=== PATIENT | male | born 1960 ===

== ENCOUNTER 2021-06-14 18:17 | Emergency (ER) | payer MEDICAID ==
[~2021-06-14] VITALS: Ht 160 cm; Wt 59.0 kg
--- NOTE | 2021-06-14 18:34 | NUR ---
EKG COMPLETED IN TRIAGE
[2021-06-14 19:04] LABS: BASOPHILS % (AUTO) 1 % (0-1); EOSINOPHILS % (AUTO) 0 % (1-7); LYMPHOCYTES % (AUTO) 30 % (22-44); MEAN CORPUSCULAR HEMOGLOBIN 30.1 pg (27.5-34.5); MEAN CORPUSCULAR HGB CONC 34.2 g/dL (33.2-36.2); MEAN PLATELET VOLUME 8.4 fL (7.4-10.4); MONOCYTES % (AUTO) 9 % (2-9); NEUTROPHILS % (AUTO) 61 % (42-75); PLATELET COUNT 251 x10^3/uL (130-400); RED BLOOD COUNT 5.56 x10^6/uL (4.38-5.82)
[2021-06-14 19:14] LABS: ALANINE AMINOTRANSFERASE 21 U/L (12-78); ANION GAP 4 mmol/L (5-15); CALCIUM 8.3 mg/dL (8.5-10.1); CHLORIDE 103 mmol/L (98-107); CREATININE 0.81 mg/dL (0.7-1.3)
[2021-06-14 19:18] LABS: ALKALINE PHOSPHATASE 68 U/L (45-117); BILIRUBIN,TOTAL 0.3 mg/dL (0.2-1.0); TOTAL PROTEIN 7.9 g/dL (6.4-8.2); TROPONIN I < 0.015 ng/mL (0.000-0.045)
[2021-06-14] MEDS ORDERED: DEXAMETHASONE 4 MG TABLET PO ONE (20:30)
[2021-06-14] MEDS ORDERED: DEXAMETHASONE 4 MG TABLET ONE (20:53)
[2021-06-14 20:57] VITALS: BP 124/80
== END 2021-06-14 21:34 | disposition home or self-care (01) ==
LOC: ED 19:00
DX: U07.1 COVID-19 (principal); J12.9 Viral pneumonia, unspecified
CPT/HCPCS: 36415; 71045; 80053; 84484; 85025; 93005; 99285